=== PATIENT | female | born 1940 | race Caucasian/White ===

== ENCOUNTER 2016-07-21 08:08 | Day surgery (SDC) | payer MEDICARE, BC ==
[2016-07-21] MEDS ORDERED: Dextrose 5%-Lactated Ringers 1,000 ML IV SCH (09:15)
[2016-07-21] MEDS ORDERED: fentaNYL 100 MCG/2 ML SDV ONE (10:05)
[2016-07-21] MEDS ORDERED: Midazolam 1 MG/ML 2 ML SDV ONE (10:05)
[2016-07-21] MEDS ORDERED: Propofol 200 MG/20 ML SDV ONE (10:05)
[2016-07-21 11:53] VITALS: BP 120/40
--- NOTE | 2016-07-27 13:21 | OR ---
DATE OF PROCEDURE: 07/21/2016 PREOPERATIVE DIAGNOSIS: History of colon polyps. POSTOPERATIVE DIAGNOSES: 1. 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 2. No recurrent polyps identified. OPERATIVE PROCEDURE: Flexible colonoscopy (incomplete) (95951-88). ANESTHESIA: IV sedation. INDICATION FOR PROCEDURE: A 75-year-old status post colonoscopy in 2012, in which case a small single adenomatous polyp was identified and removed. She presented to undergo a followup colonoscopy at this time. Potential risks of the procedure including bleeding and perforation were discussed, and the patient wishes to proceed. DETAILS OF PROCEDURE: The patient was taken to the operating room and placed in a left lateral decubitus position. IV sedation was administered, after which the initial digital rectal exam was performed and was unremarkable. Scope was passed into the rectum with retroflexion revealing uncomplicated hemorrhoids. The scope was then passed eventually to the level of the midtransverse colon, to that level, no abnormalities were noted. The scope could not be passed beyond that point despite numerous maneuvers with the entire scope entered into the patient with the scope apparently bowing at that point such as sigmoid colon and splenic flexure. At that point, the decision was made to withdraw the scope to that level. No abnormalities were noted. No additional polyps or other problems were identified. There was some mucosal abrasion present, which made a barium enema x-ray to complement today's exam somewhat high risk. The scope was withdrawn. The procedure was concluded. The patient was taken to the recovery room in satisfactory condition. The recommendation would be to repeat the colonoscopy in 3 years. As an adjunct to the today's exam, it may be worthwhile to use perhaps one of the other screening techniques in the next year or two for colon neoplasia. Norberto Rand MD /[id number]
== END 2016-07-21 12:18 | disposition home or self-care (01) ==
LOC: JP.SDS 08:08
PROVIDERS: ATTEND Surgery
DX: Z12.11 Encounter for screening for malignant neoplasm of colon (principal); Q43.8 Other specified congenital malformations of intestine; E78.5 Hyperlipidemia, unspecified
CPT/HCPCS: 45378; J2250; J2704; J3010; J7042

== ENCOUNTER 2020-01-17 07:11 | Day surgery (SDC) | payer MEDICARE ==
[2020-01-17] MEDS ORDERED: fentaNYL 100 MCG/2 ML SDV ONE (07:29)
[2020-01-17] MEDS ORDERED: Propofol 200 MG/20 ML SDV ONE (07:29)
[2020-01-17] MEDS ORDERED: Dextrose 5%-Lactated Ringers 1,000 ML IV SCH (08:00)
[2020-01-17 09:49] VITALS: BP 114/71; PULSE 63
--- NOTE | 2020-01-23 13:45 | OR ---
DATE OF PROCEDURE: 01/17/2020 SURGEON: Norberto Rand MD PREOPERATIVE DIAGNOSIS: History of colon polyps. POSTOPERATIVE DIAGNOSIS: Normal colonoscopic examination with no recurrent polyps. OPERATIVE PROCEDURE: Flexible colonoscopy. ANESTHESIA: IV sedation. INDICATION FOR PROCEDURE: This is an 79-year-old female presenting for followup colonoscopy. She has a history of polyps in the past. Plan is to proceed with a colonoscopy with biopsies and/or polypectomy as indicated. Potential risks including bleeding and perforation were discussed, and the patient wishes to proceed. DETAILS OF PROCEDURE: The patient was taken to the operating room and placed in a left lateral decubitus position. IV sedation was administered after which the initial digital rectal exam was performed and was unremarkable. The colonoscope was then passed through the rectum with retroflexion revealing uncomplicated hemorrhoidal columns. The scope was eventually passed to the cecum. Prep was quite good with only a very small amount of liquid stool present to that level. No abnormalities were noted. There were no areas of diverticular disease or colitis, and no additional polyps or signs of neoplasia were seen. The scope was then withdrawn with the above findings reconfirmed, and the procedure was then concluded. The patient presently is 79 years old, but is in quite good health. If at age 84, she has continued to do well, one might consider a followup colonoscopy. Norberto Rand MD /[id number]
== END 2020-01-17 10:05 | disposition home or self-care (01) ==
LOC: JP.SDS 07:11
PROVIDERS: ATTEND Surgery
DX: Z12.11 Encounter for screening for malignant neoplasm of colon (principal); K64.9 Unspecified hemorrhoids; Z86.010 Personal history of colon polyps
CPT/HCPCS: G0105; J2704; J3010; J7121